=== PATIENT | female | born 1975 | race Caucasian/White ===

== ENCOUNTER 2019-12-17 15:18 | Emergency (ER) | payer MEDICAID ==
[~2019-12-17] VITALS: Ht 162.6 cm; Wt 65.8 kg
--- NOTE | 2019-12-17 15:20 | NUR ---
JOSEPH OCASIO TO ER CHAIR B
[2019-12-17 15:24] VITALS: BP 120/95
--- NOTE | 2019-12-17 15:32 | NUR ---
44 Y/O PT BIB [facility] C/O EPIGASTRIC PAIN. NO EPISODES OF EMESIS. CURRENT PAIN IS 1/10, NON RADIATING, DENIES ANY CP, SOB. RESP EVEN AND UNLABORED. LUNG SOUNDS CLEAR IN BILAT LOBES. BOWEL SOUNDS NORMOACTIVE IN ALL QUADRANTS. ABD SOFT/NON TENDER. SKIN COOL , DRY. AAOX4. CAP REFILL <3. NO DISTRESS NOTED AT THIS TIME. HX: TUBAL LIGATION NKA
--- NOTE | 2019-12-17 15:54 | NUR ---
PT [facility]B W/O ASST TO ER BED 8
[2019-12-17] MEDS ORDERED: ALUMINUM HYD/MAG/SIMETHICONE 30 ML UDC PO ONE (16:05)
--- NOTE | 2019-12-17 16:53 | NUR ---
denies epigastric or nausea at this time---continues to wait for dispo
[2019-12-17 17:21] LABS: APPEARANCE,URINE CLOUDY (CLEAR); BILIRUBIN,URINE NEGATIVE (NEGATIVE); BLOOD, URINE 2+ (NEGATIVE); COLOR,URINE YELLOW (YELLOW); LEUKOCYTE ESTERASE ,URINE TRACE (NEGATIVE); NITRITE, URINE NEGATIVE (NEGATIVE); UGLUCOSE NEGATIVE (NEGATIVE)
[2019-12-17 17:45] LABS: URINE AMORPHOUS URATE 2+ /HPF (None Seen); WBC,URINE 0-5 /HPF (0-5)
[2019-12-17 17:48] VITALS: BP 158/79
== END 2019-12-17 17:48 | disposition home or self-care (01) ==
LOC: MED 15:18
DX: R10.84 Generalized abdominal pain (principal); I10 Essential (primary) hypertension; Z98.890 Other specified postprocedural states
CPT/HCPCS: 81001; 81025; 99283

== ENCOUNTER 2020-03-01 20:26 | Inpatient (IN) | payer MEDICAID, OTHER ==
[~2020-03-01] VITALS: Ht 154.9 cm; Wt 77.1 kg
[2020-03-01] MEDS: NACL 0.9% 1,000 ML IV SCH (05:25)
[2020-03-01 20:32] VITALS: BP 170/110
[2020-03-01] MEDS ORDERED: KETOROLAC 30 MG/ML VIAL IM ONE (21:10)
[2020-03-01] MEDS ORDERED: DICYCLOMINE HCL LIQUID 20 MG, ALUMINUM HYD/MAG/SIMETHICONE 30 ML, LIDOCAINE VISCOUS 2% ... PO ONE ×3 (21:10)
[2020-03-01] MEDS ORDERED: DICYCLOMINE HCL LIQUID 10 MG/5 ML UDC ONE (21:15)
[2020-03-01] MEDS ORDERED: LIDOCAINE VISCOUS 2% 20 ML UDC ONE (21:15)
[2020-03-01] MEDS ORDERED: ALUMINUM HYD/MAG/SIMETHICONE 30 ML UDC ONE (21:15)
[2020-03-01 21:53] LABS: BASOPHILS # (AUTO) 0.1 K/uL (0.00-0.22); EOSINOPHILS # (AUTO) 0.3 K/uL (0-0.4); MEAN CORPUSCULAR VOLUME 81.8 fL (80-94); RED BLOOD CELL COUNT(AUTO) 4.52 MIL/uL (4.20-5.40)
[2020-03-01 22:12] LABS: ALBUMIN 3.4 g/dL (3.4-5.0); CARBON DIOXIDE 25.8 mmol/L (21-32); CREATININE 0.7 mg/dL (0.6-1.3); POTASSIUM 3.8 mmol/L (3.5-5.1); TOTAL BILIRUBIN 0.3 mg/dL (0.0-1.0)
[2020-03-01] MEDS ORDERED: ONDANSETRON 4 MG/2 ML VIAL IVP ONE (22:45)
[2020-03-01] MEDS ORDERED: MORPHINE SULFATE 4 MG/ML SYR IVP ONE (22:45)
[2020-03-01] MEDS ORDERED: NACL 0.9% 1,000 ML IV ONE ×2 (22:45→23:20)
[2020-03-01 22:49] LABS: BASOPHILS % (AUTO) 0.4 % (0.0-2.0); EOSINOPHILS % (AUTO) 2.3 % (0.0-4.0); HEMATOCRIT 36.9 % (36-48); HEMOGLOBIN 11.8 g/dL (12.0-16.0); LYMPHOCYTES # (AUTO) 3.5 K/uL (2.5-16.5); LYMPHOCYTES % (AUTO) 25.1 % (20.5-51.1); MEAN CORPUSCULAR HEMOGLOBIN 26 pg (27-31); MEAN CORPUSCULAR HGB CONC 32 g/dL (33-37); MONOCYTES % (AUTO) 7.4 % (1.7-9.3); NEUTROPHILS # (AUTO) 9.1 K/uL (1.8-7.7); PLATELET COUNT (AUTO) 334 K/uL (140-450); RED CELL DISTRIBUTION WIDTH 15.9 % (11.6-13.7); WHITE BLOOD COUNT (AUTO) 14.1 K/uL (4.8-10.8)
[2020-03-01 22:58] LABS: NEUTROPHILS % (AUTO) 64.8 % (42.2-75.2)
[2020-03-01] MEDS ORDERED: cefTRIAXone 1,000 MG VIAL ONE (23:07)
[2020-03-01] MEDS ORDERED: ACETAMINOPHEN 325 MG TAB PO PRN (23:30)
[2020-03-01] MEDS ORDERED: LORazepam 2 MG/ML VIAL IM/IVP PRN (23:30)
[2020-03-01] MEDS ORDERED: DOCUSATE SODIUM 100 MG GELCAP PO PRN (23:30)
[2020-03-01] MEDS ORDERED: ZOLPIDEM 5 MG TAB PO PRN (23:30)
[2020-03-01] MEDS ORDERED: ONDANSETRON 4 MG/2 ML VIAL IM/IVP PRN (23:30)
[2020-03-02 00:22] LABS: PROTHROMBIN TIME 10.2 secs (10.8-13.4)
[2020-03-02 01:30] LABS: APPEARANCE,URINE CLEAR (CLEAR); BILIRUBIN,URINE NEGATIVE (NEGATIVE); BLOOD, URINE NEGATIVE (NEGATIVE); COLOR,URINE YELLOW (YELLOW); LEUKOCYTE ESTERASE ,URINE NEGATIVE (NEGATIVE); NITRITE, URINE NEGATIVE (NEGATIVE); UGLUCOSE TRACE (NEGATIVE)
[2020-03-02 01:41] LABS: RBC,URINE NONE SEEN /HPF (0-5); WBC,URINE NONE SEEN /HPF (0-5)
[2020-03-02 01:55] LABS: BARBITURATE, URINE NEGATIVE ng/ml (NEG <=200); BENZODIAZEPINE, URINE NEGATIVE ng/mL (NEG <=200); CANNABINOID, URINE NEGATIVE ng/mL (NEG <=50); COCAINE, URINE NEGATIVE ng/mL (NEG <=300); OPIATE, URINE POSITIVE ng/mL (NEG <=2000); PHENCYCLIDINE SCREEN,URINE NEGATIVE ng/mL (NEG <=25)
[2020-03-02 02:07] LABS: AMYLASE 712 U/L (25-115); LACTATE DEHYDROGENASE 266 U/L (81-234); MAGNESIUM 2.1 mg/dL (1.8-2.4); PHOSPHORUS 2.5 mg/dL (2.5-4.9); THYROID STIMULATING HORMONE 4.53 uIU/mL (0.34-3.74)
[2020-03-02] MEDS ORDERED: MEROPENEM 1,000 MG VIAL IV ONE (05:15)
[2020-03-02] MEDS: MEROPENEM 1,000 MG in NACL 0.9% 100 ML IV SCH ×3 (05:25→21:15)
[2020-03-02 08:00] VITALS: BP 113/83
[2020-03-02 08:31] LABS: ANION GAP 12.6 (8-16); CARBON DIOXIDE 24.7 mmol/L (21-32); CREATININE 0.6 mg/dL (0.6-1.3); POTASSIUM 4.3 mmol/L (3.5-5.1)
[2020-03-02 08:38] LABS: BASOPHILS # (AUTO) 0.1 K/uL (0.00-0.22); BASOPHILS % (AUTO) 0.5 % (0.0-2.0); EOSINOPHILS # (AUTO) 0.2 K/uL (0-0.4); EOSINOPHILS % (AUTO) 1.9 % (0.0-4.0); HEMATOCRIT 36.4 % (36-48); HEMOGLOBIN 11.7 g/dL (12.0-16.0); LYMPHOCYTES # (AUTO) 2.8 K/uL (2.5-16.5); LYMPHOCYTES % (AUTO) 26.7 % (20.5-51.1); MEAN CORPUSCULAR HEMOGLOBIN 26 pg (27-31); MEAN CORPUSCULAR HGB CONC 32 g/dL (33-37); MEAN CORPUSCULAR VOLUME 81.6 fL (80-94); MONOCYTES # (AUTO) 1.1 K/uL (0.8-1.0); MONOCYTES % (AUTO) 10.8 % (1.7-9.3); NEUTROPHILS # (AUTO) 6.3 K/uL (1.8-7.7); NEUTROPHILS % (AUTO) 60.1 % (42.2-75.2); PLATELET COUNT (AUTO) 316 K/uL (140-450); RED BLOOD CELL COUNT(AUTO) 4.46 MIL/uL (4.20-5.40); RED CELL DISTRIBUTION WIDTH 15.7 % (11.6-13.7); WHITE BLOOD COUNT (AUTO) 10.5 K/uL (4.8-10.8)
[2020-03-02 08:55] LABS: MAGNESIUM 2.1 mg/dL (1.8-2.4); PHOSPHORUS 2.5 mg/dL (2.5-4.9)
[2020-03-02] MEDS: LACTOBACILLUS RHAMNOSUS GG 1 EACH CAP PO SCH (09:41)
[2020-03-02] MEDS: NACL 0.9% 1,000 ML IV SCH ×3 (09:41→17:40)
[2020-03-02 12:00] VITALS: BP 137/74
[2020-03-02 16:00] VITALS: BP 125/79
[2020-03-02 20:00] VITALS: BP 122/75
[2020-03-03] VITALS: BP 125/75
[2020-03-03] MEDS: NACL 0.9% 1,000 ML IV SCH ×2 (01:59→08:48)
[2020-03-03 04:00] VITALS: BP 115/55
[2020-03-03] MEDS: MEROPENEM 1,000 MG in NACL 0.9% 100 ML IV SCH ×3 (05:29→20:31)
[2020-03-03 06:56] LABS: BASOPHILS % (AUTO) 0.4 % (0.0-2.0); EOSINOPHILS # (AUTO) 0.3 K/uL (0-0.4); MEAN CORPUSCULAR VOLUME 82.4 fL (80-94); RED CELL DISTRIBUTION WIDTH 15.7 % (11.6-13.7)
[2020-03-03 07:02] LABS: EOSINOPHILS % (AUTO) 3.2 % (0.0-4.0); HEMATOCRIT 33.9 % (36-48); LYMPHOCYTES % (AUTO) 31.2 % (20.5-51.1); MEAN CORPUSCULAR HEMOGLOBIN 27 pg (27-31); MEAN CORPUSCULAR HGB CONC 32 g/dL (33-37); MONOCYTES # (AUTO) 0.8 K/uL (0.8-1.0); MONOCYTES % (AUTO) 8.3 % (1.7-9.3); NEUTROPHILS # (AUTO) 5.5 K/uL (1.8-7.7); NEUTROPHILS % (AUTO) 56.9 % (42.2-75.2); PLATELET COUNT (AUTO) 313 K/uL (140-450); RED BLOOD CELL COUNT(AUTO) 4.12 MIL/uL (4.20-5.40); WHITE BLOOD COUNT (AUTO) 9.7 K/uL (4.8-10.8)
[2020-03-03 08:06] LABS: T4 (THYROXINE) 8.4 ug/dL (4.5-12.0)
[2020-03-03] MEDS: LACTOBACILLUS RHAMNOSUS GG 1 EACH CAP PO SCH (09:34)
[2020-03-03 10:12] VITALS: BP 101/71
[2020-03-03 10:46] LABS: ANION GAP 10.8 (8-16); CARBON DIOXIDE 24.4 mmol/L (21-32); CREATININE 0.6 mg/dL (0.6-1.3); POTASSIUM 4.2 mmol/L (3.5-5.1); TOTAL BILIRUBIN 0.4 mg/dL (0.0-1.0)
[2020-03-03] MEDS ORDERED: BUPIVACAINE-MPF/EPI 0.25% 30 ML VIAL INJ ONE (12:59)
[2020-03-03] MEDS ORDERED: ROCURONIUM 50 MG/5 ML VIAL IV ONE (13:00)
[2020-03-03] MEDS ORDERED: MEROPENEM 1,000 MG VIAL IV ONE (13:00)
[2020-03-03] MEDS ORDERED: fentaNYL 0.05 MG/ML VIAL ONE (13:00)
[2020-03-03] MEDS ORDERED: NEOSTIGMINE 1:1000 10 MG/10 ML VIAL ONE (13:00)
[2020-03-03] MEDS ORDERED: DEXAMETHASONE 4 MG/ML VIAL ONE (13:00)
[2020-03-03] MEDS ORDERED: PROPOFOL 200 MG/20 ML VIAL IV ONE (13:00)
[2020-03-03] MEDS ORDERED: DESFLURANE 240 ML BTL INH ONE (13:00)
[2020-03-03] MEDS ORDERED: GLYCOPYRROLATE 0.2 MG/ML VIAL ONE (13:00)
[2020-03-03] MEDS ORDERED: MIDAZOLAM 2 MG/2 ML VIAL ONE (13:00)
[2020-03-03] MEDS ORDERED: ONDANSETRON 4 MG/2 ML VIAL ONE (13:00)
[2020-03-03] MEDS ORDERED: KETOROLAC 30 MG/ML VIAL ONE (13:00)
[2020-03-03] MEDS ORDERED: LACTATED RINGERS 1,000 ML IV SCH (13:40)
[2020-03-03] MEDS ORDERED: HYDROmorphone 1 MG/ML AMP IVP PRN (13:40)
[2020-03-03] MEDS ORDERED: ONDANSETRON 4 MG/2 ML VIAL IVP PRN (13:40)
[2020-03-03] MEDS ORDERED: MEPERIDINE 25 MG/ML SYR IVP PRN (13:40)
[2020-03-03 14:00] VITALS: BP 150/91
[2020-03-03] MEDS: DEXT 5% / NACL 0.45% 1,000 ML IV SCH (14:50)
[2020-03-03] MEDS: HYDROcodone/APAP 5/325 MG 1 TAB TAB PO PRN ×2 (17:44→23:15)
[2020-03-03] MEDS: MORPHINE SULFATE 2 MG/ML SYR IVP PRN (20:20)
[2020-03-03 21:00] VITALS: BP 148/92
[2020-03-04] VITALS: BP 153/83
[2020-03-04] MEDS: DEXT 5% / NACL 0.45% 1,000 ML IV SCH ×2 (00:52→10:50)
[2020-03-04] MEDS: MORPHINE SULFATE 2 MG/ML SYR IVP PRN ×2 (04:29→11:46)
[2020-03-04] MEDS: MEROPENEM 1,000 MG in NACL 0.9% 100 ML IV SCH ×2 (04:33→12:54)
[2020-03-04 07:06] LABS: BASOPHILS # (AUTO) 0.1 K/uL (0.00-0.22); BASOPHILS % (AUTO) 0.4 % (0.0-2.0); EOSINOPHILS # (AUTO) 0.1 K/uL (0-0.4); EOSINOPHILS % (AUTO) 0.7 % (0.0-4.0); HEMATOCRIT 36.3 % (36-48); HEMOGLOBIN 11.4 g/dL (12.0-16.0); LYMPHOCYTES # (AUTO) 2.9 K/uL (2.5-16.5); LYMPHOCYTES % (AUTO) 21.2 % (20.5-51.1); MEAN CORPUSCULAR HEMOGLOBIN 26 pg (27-31); MEAN CORPUSCULAR HGB CONC 32 g/dL (33-37); MONOCYTES % (AUTO) 7.2 % (1.7-9.3); NEUTROPHILS # (AUTO) 9.6 K/uL (1.8-7.7); NEUTROPHILS % (AUTO) 70.5 % (42.2-75.2); PLATELET COUNT (AUTO) 364 K/uL (140-450); RED BLOOD CELL COUNT(AUTO) 4.42 MIL/uL (4.20-5.40); RED CELL DISTRIBUTION WIDTH 15.7 % (11.6-13.7); WHITE BLOOD COUNT (AUTO) 13.6 K/uL (4.8-10.8)
[2020-03-04 08:05] LABS: ALBUMIN 3.1 g/dL (3.4-5.0); CARBON DIOXIDE 24.1 mmol/L (21-32); CREATININE 0.5 mg/dL (0.6-1.3); POTASSIUM 4.1 mmol/L (3.5-5.1); TOTAL BILIRUBIN 0.3 mg/dL (0.0-1.0)
[2020-03-04] MEDS: LACTOBACILLUS RHAMNOSUS GG 1 EACH CAP PO SCH (09:35)
[2020-03-04] MEDS ORDERED: SODIUM PHOS / POTASSIUM PHOS 1 PKT PDR PO SCH (11:00)
[2020-03-04] MEDS ORDERED: HYDR-5122 PO (13:44)
== END 2020-03-04 16:44 | disposition home or self-care (01) | DRG 263 ==
LOC: MED 20:26 → MMU 23:28 → MTU 03-02 04:51
PROVIDERS: ADMIT General Practice; ATTEND General Practice
PROC: 0FT44ZZ Resection of Gallbladder, Percutaneous Endoscopic Approach (ICD-10-PCS; principal; 2020-03-03 12:55)
DX: K80.00 Calculus of gallbladder with acute cholecystitis without obstruction (principal); K85.10 Biliary acute pancreatitis without necrosis or infection; E83.39 Other disorders of phosphorus metabolism; E11.65 Type 2 diabetes mellitus with hyperglycemia; E66.9 Obesity, unspecified; F12.90 Cannabis use, unspecified, uncomplicated; K21.9 Gastro-esophageal reflux disease without esophagitis; I10 Essential (primary) hypertension; E78.5 Hyperlipidemia, unspecified; Z68.32 Body mass index [BMI] 32.0-32.9, adult; Z71.3 Dietary counseling and surveillance; Z83.3 Family history of diabetes mellitus; Z80.8 Family history of malignant neoplasm of other organs or systems; Z82.49 Family history of ischemic heart disease and other diseases of the circulatory system
CPT/HCPCS: 36415; 71045; 76705; 80048; 80053; 80305; 81001; 81025; 82150; 83036; 83605; 83615; 83690; 83735; 83880; 84100; 84134; 84436; 84443; 84484; 85025; 85610; 85730; 86886; 86900; 86901; 87040; 87081; 87086; 88304; 96361; 96365; 96372; 96375; 99285; G0482; J0696; J1100; J1885; J2185; J2250; J2270; J2405; J2704; J2710; J3010; J3490; J7030; Q0092

== ENCOUNTER 2023-05-23 10:04 | Emergency (ER) | payer MEDICAID, OTHER ==
[~2023-05-23] VITALS: Ht 154.9 cm; Wt 79.4 kg
[~2023-05-23 10:04] MED LIST: HYDR-5122 PO
[2023-05-23 10:28] VITALS: BP 159/80; PULSE 82; RESP 18; TEMP 98; O2SAT 82
[2023-05-23] MEDS ORDERED: LORA10TA19 PO (12:26)
[2023-05-23] MEDS ORDERED: FAMO-368 PO (12:26)
--- NOTE | 2023-05-23 12:47 | NUR ---
Patient discharged with v/s stable. Written and verbal after care instructions given and explained. Patient alert, oriented and verbalized understanding of instructions. Ambulatory with steady gait. All questions addressed prior to discharge. ID band removed. Patient advised to follow up with PMD. Rx of FAMOTIDINE, LORATIDINE given. Patient educated on indication of medication including possible reaction and side effects. Opportunity to ask questions provided and answered.
== END 2023-05-23 12:47 | disposition home or self-care (01) ==
LOC: MED 10:04
DX: L50.9 Urticaria, unspecified (principal); Z79.899 Other long term (current) drug therapy
CPT/HCPCS: 99282